=== PATIENT | male | born 1975 | race African-American/Black ===

== ENCOUNTER 2018-07-06 23:39 | Emergency (ER) | payer MEDICARE, OTHER ==
[~2018-07-06] VITALS: Ht 175.3 cm; Wt 150.4 kg
[2018-07-06 23:45] VITALS: Ht 175.3 cm; Wt 150.4 kg
[2018-07-07] MEDS ORDERED: KETOROLAC 30 MG INJ IM STA (03:33)
[2018-07-07] MEDS ORDERED: HYDROCODONE/APAP (5/325) TAB PO ONE (04:00)
[2018-07-07] MEDS ORDERED: IBUP-1542 PO (04:26)
[2018-07-07] MEDS ORDERED: CYCL10TA7 PO (04:26)
[2018-07-07 05:16] VITALS: BP 132/91; PULSE 84; RESP 18
--- NOTE | 2018-07-07 06:53 | ERD ---
ER Documentation Chief Complaint Chief Complaint TAIL BONE-LOW BACK PAIN RADIATES TO LEGS ON/OFF [id number]; NO KNWON INJ HPI This is a 43-year-old male with hx of CFH who presents to the ED complaining of sharp, intermittent left lower back pain radiating down to his left thigh x1 month. Patient denies any direct injury. He states he does do lots of heavy lifting for work. Patient states he has a history of chronic pain which she takes [place] for. He states he ran out of this medication several weeks ago but will be seeing his primary care provider within the next week. Patient denies any associated fevers, chills, loss of bowel or bladder control, numbness, tingling or focal weakness of his lower extremities. No other complaints. ROS All systems reviewed and are negative except as per history of present illness. Medications Home Meds Active Scripts Cyclobenzaprine Hcl* (Cyclobenzaprine Hcl*) 10 Mg Tablet, 10 MG PO TID for muscle spasms, #15 TAB Prov:DISHIGRIKIANREINALDO PA-C 07/07/18 Ibuprofen* (Motrin*) 600 Mg Tab, 600 MG PO Q6H PRN for PAIN AND OR ELEVATED TEMP, #30 TAB Prov:DISHIGRIKIANANABELLAUR N PA-C 07/07/18 PMhx/Soc History of Surgery: Yes (pacemaker/defibrillator ) Anesthesia Reaction: No Hx Neurological Disorder: No Hx Respiratory Disorders: No Hx Cardiac Disorders: Yes (chf, htn ) Hx Psychiatric Problems: No Hx Miscellaneous Medical Probl: No Hx Alcohol Use: No Hx Substance Use: Yes (marijuana ) Hx Tobacco Use: Yes Smoking Status: Current some day smoker Physical Exam Vitals Vital Signs Date Temp Pulse Resp B/P (MAP) Pulse Ox O2 O2 Flow FiO2 Time Delivery Rate 07/07/18 98.1 84 18 132/91 98 Room Air 05:16 (105) 07/06/18 98.6 95 19 165/82 98 23:45 (109) Physical Exam Const: No acute distress Head: Atraumatic Eyes: Normal Conjunctiva ENT: Normal External Ears, Nose and Mouth. Neck: Full range of motion. No meningismus. Resp: Clear to auscultation bilaterally Cardio: Regular rate and rhythm, no murmurs Abd: Soft, non tender, non distended. Normal bowel sounds Skin: No petechiae or rashes Back: + Mild left lower lumbar paraspinal tenderness to palpation. No midline tenderness. No step-offs. Positive straight leg raise on the right. Ext: No cyanosis, or edema Neur: Awake and alert Psych: Normal Mood and Affect Results 24 hrs Current Medications Medications Dose Sig/Danielle Start Time Status Last (Trade) Ordered Route PRN Stop Time Admin Dose Reason Admin Ketorolac 30 mg ONCE STAT 07/07/18 DC 07/07/18 Tromethamine IM 03:33 03:42 (Toradol) 07/07/18 03:35 1 tab ONCE ONCE 07/07/18 DC 07/07/18 Acetaminophen PO 04:00 03:41 / 07/07/18 04:01 Hydrocodone Bitart ([place] (5)) Procedures/MDM ED COURSE: The patient was given [place], Toradol The medication was well tolerated and the patient had market improvement in symptoms. The patient remained stable throughout ED course. MEDICAL DECISION MAKING: P 43-year-old male presents with atraumatic low back pain. There are no focal neurological deficits on physical exam. Advanced imaging was deferred as symptoms are likely musculoskeletal in origin. I have low suspicion for epidural abscess, cauda equina, cord compression, spinal tumor/mass or compression fracture. Symptoms improved status post IM Toradol and [place]. Patient will be treated conservatively with appropriate pain control. I recommended he follow- up with his regular doctor this week as planned for further refills of his [place]. Strict return precautions were discussed. PRESCRIPTIONS: Ibuprofen, cyclobenzaprine SPECIALIST FOLLOW UP RECOMMENDED: None Patient has been advised to follow up with primary care in 1-2 days. Blood Pressure Assessment: Patient's blood pressure was elevated (>120/80) but appears stable without evidence of hypertension emergency or urgency. The patient was counseled about the risks of hypertension and urged to pursue outpatient monitoring and therapy within a week with their primary care physician. Smoking Cessation Therapy: Pt. was lectured for greater than 3 minutes on the health risks of continued smoking and the benefits of cessation. Departure Diagnosis: Primary Impression: Sciatica Laterality: left Qualified Codes: M54.32 - Sciatica, left side Condition: Stable Patient Instructions: Back Pain W/ Sciatica Referrals: COMMUNITY CLINICS YOU HAVE RECEIVED A MEDICAL SCREENING EXAM AND THE RESULTS INDICATE THAT YOU DO NOT HAVE A CONDITION THAT REQUIRES URGENT TREATMENT IN THE EMERGENCY DEPARTMENT. FURTHER EVALUATION AND TREATMENT OF YOUR CONDITION CAN WAIT UNTIL YOU ARE SEEN IN YOUR DOCTORS OFFICE WITHIN THE NEXT 1-2 DAYS. IT IS YOUR RESPONSIBILITY TO MAKE AN APPOINTMENT FOR FOLOW-UP CARE. IF YOU HAVE A PRIMARY DOCTOR --you should call your primary doctor and schedule an appointment IF YOU DO NOT HAVE A PRIMARY DOCTOR YOU CAN CALL OUR PHYSICIAN REFERRAL HOTLINE AT IF YOU CAN NOT AFFORD TO SEE A PHYSICIAN YOU CAN CHOSE FROM THE FOLLOWING [facility] [address] [facility] [address] [facility] [address] [facility] [address] [address] [facility] [address] [facility] [address] [facility] YOU HAVE RECEIVED A MEDICAL SCREENING EXAM AND THE RESULTS INDICATE THAT YOU DO NOT HAVE A CONDITION THAT REQUIRES URGENT TREATMENT IN THE EMERGENCY DEPARTMENT. FURTHER EVALUATION AND TREATMENT OF YOUR CONDITION CAN WAIT UNTIL YOU ARE SEEN IN YOUR DOCTORS OFFICE WITHIN THE NEXT 1-2 DAYS. IT IS YOUR RESPONSIBILITY TO MAKE AN APPOINTMENT FOR FOLOW-UP CARE. IF YOU HAVE A PRIMARY DOCTOR --you should call your primary doctor and schedule and appointment IF YOU DO NOT HAVE A PRIMARY DOCTOR YOU CAN CALL OUR PHYSICIAN REFERRAL HOTLINE AT . IF YOU CAN NOT AFFORD TO SEE A PHYSICIAN YOU CAN CHOSE FROM THE FOLLOWING [facility]: [facility] [address] [place] [address] [facility] [address] [place] [address] [facility] + [facility] [address] [place] [address] [facility] URGENT CARE/SPECIALTIES Additional Instructions: Call your primary care doctor TOMORROW for an appointment during the next 2-4 days and bring all the information and medications prescribed. If the symptoms get worse and your provider is unavailable, return to the Emergency Department immediately. REINALDO CRAWFORD PA-C July 07, 2018 06:53
== END 2018-07-07 05:17 | disposition home or self-care (01) ==
LOC: FTE 23:39
DX: M54.42 Lumbago with sciatica, left side (principal); I10 Essential (primary) hypertension; I50.9 Heart failure, unspecified; F17.210 Nicotine dependence, cigarettes, uncomplicated
CPT/HCPCS: 96372; 99284; J1885